=== PATIENT | male | born 1980 | race Hispanic/Latino ===

== ENCOUNTER 2017-11-28 08:58 | Emergency (ER) | payer BC ==
[~2017-11-28] VITALS: Ht 180.3 cm; Wt 134.4 kg
[~2017-11-28 08:58] MED LIST: COLACE100 MG PO; PERCOCET 5/31 TABLET PO; ULTRAM50 MG PO
[2017-11-28 09:29] LABS: HEMATOCRIT 45.2 % (38.0-50.0); HEMOGLOBIN 15.8 G/DL (12.5-16.6); MCH 31.4 PG (29.0-34.0); MCV 89.9 FL (86-99); PLATELET COUNT 289 K/uL (156-360); RBC DIS.WIDTH-CV 11.9 % (11.8-14.6); RBC DIS.WIDTH-SD 38.5 % (39-53); RED BLOOD COUNT 5.03 M/uL (4.00-5.50); WHITE BLOOD COUNT 10.3 K/uL (4.1-10.2)
[2017-11-28 09:41] LABS: ALBUMIN 4.2 g/dL (3.2-4.8); CHLORIDE 106 mEq/L (99-109); POTASSIUM 4.2 mEq/L (3.7-5.4); SODIUM 142 mEq/L (136-147)
[2017-11-28 09:43] LABS: GLUCOSE 106 mg/dL (70-99)
[2017-11-28 09:44] LABS: TOTAL PROTEIN 7.6 g/dL (6.4-8.3)
[2017-11-28 09:45] LABS: TOTAL BILIRUBIN 0.7 mg/dL (0.0-1.0)
[2017-11-28 09:47] LABS: ALKALINE PHOSPHATASE 73 IU/L (3-129); CREATININE 0.9 mg/dL (0.6-1.3); GFR ESTIMATE (CALCULATED) > 59 mL/min/ (58.99-99999)
[2017-11-28 09:48] LABS: UREA NITROGEN (BUN) 10 mg/dL (9-23)
[2017-11-28 09:49] LABS: AST (GOT) 34 IU/L (2-34)
[2017-11-28 09:50] LABS: ALT (GPT) 52 IU/L (3-49)
[2017-11-28 11:25] LABS: APPEARANCE CLEAR ((CLEAR)); BILIRUBIN NEGATIVE; BLOOD NEGATIVE; COLOR YELLOW ((YELLOW)); GLUCOSE (STRIP) NEGATIVE; KETONES NEGATIVE; LEUKOCYTES NEGATIVE; NITRITE NEGATIVE; PROTEIN (STRIP) NEGATIVE; SPECIFIC GRAVITY 1.017 (1.000-1.030); UCUL ADDED? NO; UROBILINOGEN 0.2 MG/DL (0.2-1.0)
[2017-11-28 13:36] VITALS: BP 138/88
== END 2017-11-28 13:37 | disposition home or self-care (01) ==
LOC: EME 08:58
DX: R10.30 Lower abdominal pain, unspecified (principal); Z87.891 Personal history of nicotine dependence
CPT/HCPCS: 74177; 80053; 81003; 85027; 99281; 99285; J1885; J2405; J7030